=== PATIENT | female | born 1955 | race Two or more races ===

== ENCOUNTER 2019-03-29 06:48 | Day surgery (SDC) | payer OTHER ==
[~2019-03-29 06:48] MED LIST: ZYRTEC10 M3 PO
== END 2019-03-29 16:45 | disposition home or self-care (01) ==
LOC: CIR.AMB 06:48
DX: C57.02 Malignant neoplasm of left fallopian tube (principal)
CPT/HCPCS: 36561; C1751

== ENCOUNTER 2021-07-23 06:00 | Day surgery (SDC) | payer OTHER | END 2021-07-23 12:50 | disposition home or self-care (01) | LOC: CIR.AMB 06:00 | PROVIDERS: ATTEND Specialist | DX: C57.02 Malignant neoplasm of left fallopian tube (principal) ==